=== PATIENT | male | born 1990 | race Caucasian/White ===

== ENCOUNTER 2018-04-28 11:36 | Inpatient (IN) | payer BC, OTHER ==
[2018-04-28] MEDS ORDERED: Sodium Chloride 0.9% 1,000 ML IV ONE (12:09)
[2018-04-28] MEDS ORDERED: Sodium Chloride 0.9% 10 ML Syringe FLUSH PRN (12:10)
[2018-04-28] MEDS ORDERED: Ampicillin/Sulbactam Na 3 GM in Sodium Chloride 0.9% 100 ML IV ONE (12:12)
[2018-04-28] MEDS ORDERED: Iopamidol 612 MG/ML 100 ML Bottle IVPUSH ONE (12:16)
[2018-04-28] MEDS: Sodium Chloride 0.9% 10 ML Syringe FLUSH ONE ×2 (12:22→12:31)
[2018-04-28] MEDS ORDERED: HYDROmorphone 1 MG/ML Syringe IVPUSH ONE ×2 (12:29→14:49)
--- NOTE | 2018-04-28 12:49 | EDM.PDOC ---
ED HPI GENERAL MEDICAL PROBLEM - General Chief Complaint: ENT Problem Stated Complaint: SORE THROAT Time Seen by Provider: 04/28/18 12:49 Source of Information: Reports: Patient History Limitations: Reports: No Limitations - History of Present Illness INITIAL COMMENTS - FREE TEXT/NARRATIVE: 27-year-old male presents for evaluation and treatment of a sore throat. She reports his symptoms started on Wednesday. He was seen at the walk-in clinic on Wednesday. Had a rapid strep test done which was reportedly negative. He is started on a steroid, has had 2 days of this but feels his symptoms are worsening. Patient is currently complaining of a sore throat present at all times and worse with swallowing. He is primarily complaining of pain to the left of his throat and his left neck. He reports associated symptoms of odynophagia. Is appreciated that his voice sounds different. No fevers, nausea or vomiting. Throat Pain Score (Numeric/FACES): 3 - Related Data Allergies Allergy/AdvReac Type Severity Reaction Status Date / Time No Known Allergies Allergy Verified 04/28/18 11:44 Home Meds: Home Meds Diphenhyd/Lidocaine/Nystatin [Magic Mouthwash] 10 ml PO QID PRN 04/28/18 [ History] methylPREDNISolone [Medrol] 4 mg PO ASDIRECTED 04/28/18 [History] Past Medical History - Past Health History Medical/Surgical History: Denies Medical/Surgical History Social & Family History - Family History Family Medical History: Noncontributory - Tobacco Use Smoking Status *Q: Current Every Day Smoker Years of Tobacco use: 5 Packs/Tins Daily: 0.1 - Caffeine Use Caffeine Use: Reports: Coffee - Recreational Drug Use Recreational Drug Use: No ED ROS ENT - Review of Systems Review Of Systems: See Below Constitutional: Reports: Chills, Malaise. Denies: Fever HEENT: Reports: Ear Pain (left), Throat Pain, Other (reports odynophagia) Respiratory: Denies: Cough GI/Abdominal: Denies: Nausea, Vomiting Musculoskeletal: Reports: Neck Pain (left sided ) ED EXAM, ENT - Physical Exam Exam: See Below Exam Limited By: No Limitations General Appearance: Alert, WD/WN, Mild Distress Ears: Normal External Exam, Normal Canal, Hearing Grossly Normal, Normal TMs Nose: Normal Inspection Mouth/Throat: Normal Inspection, Muffled Voice, Peritonsillar Mass (left sided) , Pharyngeal Erythema, Trismus, Uvular Deviation Neck: Normal Inspection, Lymphadenopathy (L) Respiratory/Chest: No Respiratory Distress, Lungs Clear, Normal Breath Sounds Cardiovascular: Normal Peripheral Pulses, Regular Rate, Rhythm, No Murmur Neurological: Alert, Oriented, Normal Cognition Psychiatric: Normal Affect, Normal Mood Skin: Warm, Dry, Normal Color Course - Vital Signs Last Recorded V/S: Last Vital Signs Temp 98.8 F 04/28/18 15:45 Pulse 75 04/28/18 15:45 Resp 16 04/28/18 15:45 BP 138/91 H 04/28/18 15:45 Pulse Ox 98 04/28/18 15:45 - Orders/Labs/Meds Orders: Active Orders 24 hr Category Date Time Status CULTURE BLOOD [] Stat Lab 04/28/18 14:22 Received CULTURE BLOOD [] Stat Lab 04/28/18 14:25 Received CULTURE STREP A CONFIRMATION [] Stat Lab 04/28/18 12:20 Results STREP SCRN A RAPID W CULT CONF [] Stat Lab 04/28/18 12:20 Results Sodium Chloride 0.9% [Normal Saline] 1,000 ml Med 04/28/18 12:09 Active IV ONETIME Sodium Chloride 0.9% [Saline Flush] Med 04/28/18 12:10 Active 10 ml FLUSH ASDIRECTED PRN Blood Culture x2 Reflex Set [OM.PC] Stat Oth 04/28/18 14:03 Ordered Peripheral IV Insertion Adult [OM.PC] Routine Oth 04/28/18 12:09 Ordered Medication Orders Hydromorphone HCl (Dilaudid) 0.5 mg IVPUSH Q2H PRN PRN Reason: Pain (severe 7-10) Sodium Chloride (Normal Saline) 1,000 mls @ 150 mls/hr IV ONETIME ONE Stop: 04/28/18 18:48 Last Admin: 04/28/18 12:22 Dose: 150 mls/hr Ampicillin Sodium/Sulbactam (Sodium 3 gm/ Sodium Chloride) 100 mls @ 200 mls/ hr IV Q6H DONALDO Ibuprofen (Motrin) 400 mg PO Q6H PRN PRN Reason: Pain (mild 1-3) Ketorolac Tromethamine (Toradol) 30 mg IV Q6H PRN PRN Reason: Pain (moderate 4-6) Ondansetron HCl (Zofran Odt) 4 mg PO Q4H PRN PRN Reason: nausea, able to take PO Ondansetron HCl (Zofran) 4 mg IV Q4H PRN PRN Reason: Nausea/Vomiting Saccharomyces Boulardii (Florastor) 250 mg PO BID DONALDO Sodium Chloride (Saline Flush) 10 ml FLUSH ASDIRECTED PRN PRN Reason: Keep Vein Open Last Admin: 04/28/18 12:22 Dose: 10 ml Labs: Laboratory Tests 04/28/18 04/28/18 Range/Units 12:20 12:20 WBC 18.77 H (4.23-9.07) K/mm3 RBC 5.49 (4.63-6.08) M/mm3 Hgb 16.3 (13.7-17.5) gm/L Hct 47.6 (40.1-51.0) % MCV 86.7 (79.0-92.2) fl MCH 29.7 (25.7-32.2) pg MCHC 34.2 (32.2-35.5) g/dl RDW Std Deviation 40.6 (35.1-43.9) fL Plt Count 244 (163-337) K/mm3 MPV 9.9 (9.4-12.3) fl Neutrophils % (Manual) 81 H (40-60) % Band Neutrophils % 2 (0-10) % Lymphocytes % (Manual) 11 L (20-40) % Atypical Lymphs % 0 % Monocytes % (Manual) 5 (2-10) % Eosinophils % (Manual) 0 L (0.8-7.0) % Basophils % (Manual) 1 (0.2-1.2) Platelet Estimate Adequate RBC Morph Comment Normal Sodium 135 L (136-145) mEq/L Potassium 4.2 (3.5-5.1) mEq/L Chloride 100 (98-107) mEq/L Carbon Dioxide 25 (21-32) mEq/L Anion Gap 14.2 (5-15) BUN 17 (7-18) mg/dL Creatinine 1.1 (0.7-1.3) mg/dL Est Cr Clr Drug Dosing 106.14 mL/min Estimated GFR (MDRD) > 60 (>60) mL/min BUN/Creatinine Ratio 15.5 (14-18) Glucose 135 H (74-106) mg/dL Calcium 9.3 (8.5-10.1) mg/dL Total Bilirubin 0.7 (0.2-1.0) mg/dL AST 11 L (15-37) U/L ALT 22 (16-63) U/L Alkaline Phosphatase 52 (46-116) U/L C-Reactive Protein 12.5 H* (<1.0) mg/dL Total Protein 8.6 H (6.4-8.2) g/dl Albumin 3.8 (3.4-5.0) g/dl Globulin 4.8 gm/dL Albumin/Globulin Ratio 0.8 L (1-2) Meds: Medications Generic Name Dose Route Start Last Admin Trade Name Freq PRN Reason Stop Dose Admin Hydromorphone HCl 0.5 mg 04/28/18 16:57 Dilaudid IVPUSH Q2H PRN Pain (severe 7-10) Sodium Chloride 1,000 mls @ 150 mls/hr 04/28/18 12:09 04/28/18 12:22 Normal Saline IV 04/28/18 18:48 150 mls/hr ONETIME ONE Administration Ampicillin Sodium/Sulbactam 100 mls @ 200 mls/hr 04/28/18 17:15 Sodium 3 gm/ Sodium Chloride IV Q6H DONALDO Ibuprofen 400 mg 04/28/18 16:57 Motrin PO Q6H PRN Pain (mild 1-3) Ketorolac Tromethamine 30 mg 04/28/18 16:57 Toradol IV Q6H PRN Pain (moderate 4-6) Ondansetron HCl 4 mg 04/28/18 16:57 Zofran Odt PO Q4H PRN nausea, able to take PO Ondansetron HCl 4 mg 04/28/18 16:57 Zofran IV Q4H PRN Nausea/Vomiting Saccharomyces Boulardii 250 mg 04/28/18 21:00 Florastor PO BID DONALDO Sodium Chloride 10 ml 04/28/18 12:10 04/28/18 12:22 Saline Flush FLUSH 10 ml ASDIRECTED PRN Administration Keep Vein Open Discontinued Medications Generic Name Dose Route Start Last Admin Trade Name Freq PRN Reason Stop Dose Admin Hydromorphone HCl 0.5 mg 04/28/18 12:29 04/28/18 12:45 Dilaudid IVPUSH 04/28/18 12:30 0.5 mg ONETIME ONE Administration Hydromorphone HCl 0.5 mg 04/28/18 14:49 04/28/18 14:56 Dilaudid IVPUSH 04/28/18 14:50 0.5 mg ONETIME ONE Administration Ampicillin Sodium/Sulbactam 100 mls @ 200 mls/hr 04/28/18 12:12 04/28/18 12: 37 Sodium 3 gm/ Sodium Chloride IV 04/28/18 12:41 200 mls/hr ONETIME ONE Administration Iopamidol 80 ml 04/28/18 12:16 04/28/18 12:31 Isovue-300 (61%) IVPUSH 04/28/18 12:17 80 ml ONETIME ONE Administration Sodium Chloride 10 ml 04/28/18 12:16 04/28/18 12:31 Saline Flush FLUSH 04/28/18 12:17 10 ml ONETIME ONE Administration - Radiology Interpretation Free Text/Narrative:: CT neck Technique: Multiple axial sections through the neck were obtained. Reconstructed coronal and sagittal images were reviewed. Intravenous contrast was utilized. Findings: Marked swelling is seen within the region of the left palatine tonsil. Multiple low-density findings are seen within this area of soft tissue swelling. Largest low density finding measures 2.0 cm and other findings measure less than 1 cm. This soft tissue swelling extends inferiorly to the level of the thyroid cartilage. Finding extends superiorly to above the uvula. This abnormality pushes the hypopharynx to the right side by about 1.2 cm. This finding obliterates the left piriform sinus. There is thickening of the uvula. Epiglottis is normal in size. Small portion of the visualized lung apices are clear. Thyroid gland shows a small left-sided low density nodule measuring 6 mm. Slightly prominent left- sided lymph nodes are seen within the neck presumably representing reactive change from the peritonsillar finding. Bone window settings were reviewed which appear within normal limits for the patient's age. Normal enhancing vascular structures are seen. Impression: 1. Marked swelling in the region of the left palatine tonsil with findings continuing superiorly to above the uvula and inferiorly to laryngeal cartilage. This obliterates the left piriform sinus and pushes the hypopharynx to the right by about 1.2 cm. Multiple low-density findings are seen within this area of soft tissue swelling compatible with more focal areas of infection with larger finding measuring 2.0 cm possibly due to early abscess. Hounsfield unit measurements do not appear of fluid to allow for drainage at this time, but puts the patient at risk for future drainable abscess. 2. Multiple slightly enlarged lymph nodes within the left neck which are felt to be reactive from the left peritonsillar finding. 3. Small nodule within the left lobe of the thyroid gland. Thyroid ultrasound recommended to further evaluate. This can be performed non-emergently. - Re-Assessments/Exams Free Text/Narrative Re-Assessment/Exam: 04/28/18 14:[address] Marrero, ENT on-call at [facility] in [place]. He has reviewed [place] images. At this point recommended continuing on the Unasyn. Avoid steroids. At this point there is no intervention ear, Nose and throat needs to do. Recommended admission and monitoring. It if the patient's symptoms worsen may require transfer to [place] but at this time is not necessary. Case discussed Dr. Rosenbaum, hospitalist on-call. She has come to the ER into the patient. Will admit to [facility]. Departure - Departure Time of Disposition: 14:35 Disposition: Admitted As Inpatient 66 Condition: Serious Clinical Impression: Peritonsillar abscess - Discharge Information *PRESCRIPTION DRUG MONITORING PROGRAM REVIEWED*: No *COPY OF PRESCRIPTION DRUG MONITORING REPORT IN PATIENT JOANNA: No - My Orders Last 24 Hours: My Active Orders 04/28/18 12:09 Sodium Chloride 0.9% [Normal Saline] 1,000 ml IV ONETIME Peripheral IV Insertion Adult [OM.PC] Routine 04/28/18 12:10 Sodium Chloride 0.9% [Saline Flush] 10 ml FLUSH ASDIRECTED PRN 04/28/18 12:20 CULTURE STREP A CONFIRMATION [RM] Stat STREP SCRN A RAPID W CULT CONF [RM] Stat 04/28/18 14:03 Blood Culture x2 Reflex Set [OM.PC] Stat 04/28/18 14:22 CULTURE BLOOD [BC] Stat 04/28/18 14:25 CULTURE BLOOD [BC] Stat - Assessment/Plan Last 24 Hours: My Active Orders 04/28/18 12:09 Sodium Chloride 0.9% [Normal Saline] 1,000 ml IV ONETIME Peripheral IV Insertion Adult [OM.PC] Routine 04/28/18 12:10 Sodium Chloride 0.9% [Saline Flush] 10 ml FLUSH ASDIRECTED PRN 04/28/18 12:20 CULTURE STREP A CONFIRMATION [] Stat STREP SCRN A RAPID W CULT CONF [] Stat 04/28/18 14:03 Blood Culture x2 Reflex Set [OM.PC] Stat 04/28/18 14:22 CULTURE BLOOD [BC] Stat 04/28/18 14:25 CULTURE BLOOD [BC] Stat
--- NOTE | 2018-04-28 13:10 | CT ---
CT neck Technique: Multiple axial sections through the neck were obtained. Reconstructed coronal and sagittal images were reviewed. Intravenous contrast was utilized. Findings: Marked swelling is seen within the region of the left palatine tonsil. Multiple low-density findings are seen within this area of soft tissue swelling. Largest low density finding measures 2.0 cm and other findings measure less than 1 cm. This soft tissue swelling extends inferiorly to the level of the thyroid cartilage. Finding extends superiorly to above the uvula. This abnormality pushes the hypopharynx to the right side by about 1.2 cm. This finding obliterates the left piriform sinus. There is thickening of the uvula. Epiglottis is normal in size. Small portion of the visualized lung apices are clear. Thyroid gland shows a small left-sided low density nodule measuring 6 mm. Slightly prominent left-sided lymph nodes are seen within the neck presumably representing reactive change from the peritonsillar finding. Bone window settings were reviewed which appear within normal limits for the patient's age. Normal enhancing vascular structures are seen. Impression: 1. Marked swelling in the region of the left palatine tonsil with findings continuing superiorly to above the uvula and inferiorly to laryngeal cartilage. This obliterates the left piriform sinus and pushes the hypopharynx to the right by about 1.2 cm. Multiple low-density findings are seen within this area of soft tissue swelling compatible with more focal areas of infection with larger finding measuring 2.0 cm possibly due to early abscess. Hounsfield unit measurements do not appear of fluid to allow for drainage at this time, but puts the patient at risk for future drainable abscess. 2. Multiple slightly enlarged lymph nodes within the left neck which are felt to be reactive from the left peritonsillar finding. 3. Small nodule within the left lobe of the thyroid gland. Thyroid ultrasound recommended to further evaluate. This can be performed non-emergently. Diagnostic code #5
--- NOTE | 2018-04-28 15:38 | PCM.HP ---
H&P History of Present Illness - General Date of Service: 04/28/18 Admit Problem/Dx: Admission Diagnosis/Problem Admission Diagnosis/Problem Peritonsillar abscess Source of Information: Patient, Provider History Limitations: Reports: No Limitations - History of Present Illness Initial Comments - Free Text/Narative: This is a 27 yo male with past medical h/o L congenital eye malformation with blindness, partial deafness bilaterally, previously fractured clavicle comes in for peritonsillar abscess. His symptoms started on Wednesday, was seen at the walk- in clinic on Wednesday. Rapid strep test was reportedly negative. He was started on a steroid, after taking for 2 days he feels his symptoms are worsening. Pt c/ o left throat and neck pain, throat pain worse with swallowing, and change in voice. His initial workup in the ED showed a CBC remarkable for WBC 18.77, Neut 81%, Lymph 11%. His chemistry is remarkable for Na 135, Glu 135, AST 11, CRP 12.5, Protein 8.6. Neck CT shows marked swelling in the region of the left palatine tonsil with findings continuing superiorly to above the uvula and inferiorly to laryngeal cartilage. This obliterates the left piriform sinus and pushes the hypopharynx to the right by about 1.2 cm. Multiple low-density findings are seen within this area of soft tissue swelling compatible with more focal areas of infection with larger finding measuring 2.0 cm possibly due to early abscess. Hounsfield unit measurements do not appear of fluid to allow for drainage at this time, but puts the patient at risk for future drainable abscess. He is subsequently admitted to the medical floor. He is a Full Code. He does not have a PCP. Throat Pain Score (Numeric/FACES): 3 - Related Data Allergies/Adverse Reactions: Allergies Allergy/AdvReac Type Severity Reaction Status Date / Time No Known Allergies Allergy Verified 04/28/18 11:44 Home Medications: Home Meds Diphenhyd/Lidocaine/Nystatin [Magic Mouthwash] 10 ml PO QID PRN 04/28/18 [ History] methylPREDNISolone [Medrol] 4 mg PO ASDIRECTED 04/28/18 [History] Past Medical History - Past Health History Medical/Surgical History: Denies Medical/Surgical History Social & Family History - Family History Family Medical History: Noncontributory - Tobacco Use Smoking Status *Q: Current Every Day Smoker Years of Tobacco use: 5 Packs/Tins Daily: 0.1 - Caffeine Use Caffeine Use: Reports: Coffee - Recreational Drug Use Recreational Drug Use: No H&P Review of Systems - Review of Systems: Review Of Systems: See Below General: Reports: Chills, Malaise. Denies: Fever HEENT: Reports: Ear Pain (L sided), Sore Throat (L sided), Other (pain with swallowing) Pulmonary: Reports: No Symptoms. Denies: Shortness of Breath, Cough Cardiovascular: Reports: No Symptoms. Denies: Chest Pain Gastrointestinal: Reports: No Symptoms. Denies: Abdominal Pain, Diarrhea, Nausea, Vomiting Genitourinary: Reports: No Symptoms Musculoskeletal: Reports: Neck Pain (L sided) Skin: Reports: No Symptoms Psychiatric: Reports: No Symptoms Neurological: Reports: No Symptoms Hematologic/Lymphatic: Reports: No Symptoms Immunologic: Reports: No Symptoms Exam - Exam Exam: See Below (L congenital eye malformation with blindness) - Vital Signs Vital Signs: Last Vital Signs Temp 97.8 F 04/28/18 11:44 Pulse 73 04/28/18 11:44 Resp 20 04/28/18 11:44 BP 149/105 H 04/28/18 11:44 Pulse Ox 99 04/28/18 11:44 Weight: 164 lb - Exam Quality Assessment: DVT Prophylaxis General: Alert, Oriented, Cooperative, Mild Distress HEENT: Conjunctiva Clear, EACs Clear, EOMI, Hearing Intact, Mucosa Moist & [place] , Nares Patent, Normal Nasal Septum, Pupils Equal, Pupils Reactive, Other. No: Posterior Pharynx Clear Neck: Supple, Trachea Midline, Lymphadenopathy (L sided) Lungs: Clear to Auscultation, Normal Respiratory Effort Cardiovascular: Regular Rate, Regular Rhythm GI/Abdominal Exam: Normal Bowel Sounds, Soft, Non-Tender, No Organomegaly, No Distention, No Abnormal Bruit, No Mass, Pelvis Stable (Male) Exam: Deferred Rectal (Males) Exam: Deferred Back Exam: Normal Inspection, Full Range of Motion, NT Extremities: Normal Inspection, Normal Range of Motion, Non-Tender, No Pedal Edema, Normal Capillary Refill Peripheral Pulses: 3+: Posterior Tibial (L), Posterior Tibial (R), Dorsalis Pedis (L), Dorsalis Pedis (R) Skin: Warm, Dry, Intact Neurological: Cranial Nerves Intact (grossly) Neuro Extensive - Mental Status: Alert, Oriented x3, Normal Mood/Affect, Normal Cognition, Memory Intact Psychiatric: Alert, Normal Affect, Normal Mood - Patient Data Lab Results Last 24 hrs: Laboratory Results - last 24 hr 04/28/18 04/28/18 Range/Units 12:20 12:20 WBC 18.77 H (4.23-9.07) K/mm3 RBC 5.49 (4.63-6.08) M/mm3 Hgb 16.3 (13.7-17.5) gm/L Hct 47.6 (40.1-51.0) % MCV 86.7 (79.0-92.2) fl MCH 29.7 (25.7-32.2) pg MCHC 34.2 (32.2-35.5) g/dl RDW Std Deviation 40.6 (35.1-43.9) fL Plt Count 244 (163-337) K/mm3 MPV 9.9 (9.4-12.3) fl Neutrophils % (Manual) 81 H (40-60) % Band Neutrophils % 2 (0-10) % Lymphocytes % (Manual) 11 L (20-40) % Atypical Lymphs % 0 % Monocytes % (Manual) 5 (2-10) % Eosinophils % (Manual) 0 L (0.8-7.0) % Basophils % (Manual) 1 (0.2-1.2) Platelet Estimate Adequate RBC Morph Comment Normal Sodium 135 L (136-145) mEq/L Potassium 4.2 (3.5-5.1) mEq/L Chloride 100 (98-107) mEq/L Carbon Dioxide 25 (21-32) mEq/L Anion Gap 14.2 (5-15) BUN 17 (7-18) mg/dL Creatinine 1.1 (0.7-1.3) mg/dL Est Cr Clr Drug Dosing 106.14 mL/min Estimated GFR (MDRD) > 60 (>60) mL/min BUN/Creatinine Ratio 15.5 (14-18) Glucose 135 H (74-106) mg/dL Calcium 9.3 (8.5-10.1) mg/dL Total Bilirubin 0.7 (0.2-1.0) mg/dL AST 11 L (15-37) U/L ALT 22 (16-63) U/L Alkaline Phosphatase 52 (46-116) U/L C-Reactive Protein 12.5 H* (<1.0) mg/dL Total Protein 8.6 H (6.4-8.2) g/dl Albumin 3.8 (3.4-5.0) g/dl Globulin 4.8 gm/dL Albumin/Globulin Ratio 0.8 L (1-2) Result Diagrams: 04/28/18 12:20 04/28/18 12:20 Connor Results Last 24 hrs: Microbiology 04/28/18 12:20 Group A Streptococcus Rapid Screen - Final Throat NEGATIVE STREP A SCREEN - Problem List (1) Peritonsillar abscess SNOMED Code(s): 60444767 ICD Code: J36 - PERITONSILLAR ABSCESS Status: Acute Priority: High Current Visit: Yes Problem List Initiated/Reviewed/Updated: Yes Orders Last 24hrs: Active Orders 24 hr Category Date Time Status Patient Status [ADT] Routine ADT 04/28/18 14:49 Active Peripheral IV Care [RC] . DIRECTED Care 04/28/18 12:10 Active CULTURE BLOOD [] Stat Lab 04/28/18 14:22 Received CULTURE BLOOD [] Stat Lab 04/28/18 14:25 Received CULTURE STREP A CONFIRMATION [] Stat Lab 04/28/18 12:20 Results STREP SCRN A RAPID W CULT CONF [] Stat Lab 04/28/18 12:20 Results Sodium Chloride 0.9% [Normal Saline] 1,000 ml Med 04/28/18 12:09 Active IV ONETIME Sodium Chloride 0.9% [Saline Flush] Med 04/28/18 12:10 Active 10 ml FLUSH ASDIRECTED PRN Blood Culture x2 Reflex Set [OM.PC] Stat Oth 04/28/18 14:03 Ordered Peripheral IV Insertion Adult [OM.PC] Routine Oth 04/28/18 12:09 Ordered Medication Orders Sodium Chloride (Normal Saline) 1,000 mls @ 150 mls/hr IV ONETIME ONE Stop: 04/28/18 18:48 Last Admin: 04/28/18 12:22 Dose: 150 mls/hr Sodium Chloride (Saline Flush) 10 ml FLUSH ASDIRECTED PRN PRN Reason: Keep Vein Open Last Admin: 04/28/18 12:22 Dose: 10 ml Assessment/Plan Comment:: Assessment/Plan: Acute: Peritonsillar Abscess * Started Wednesday, seen at walk-in clinic on Wednesday: * Rapid strep test was reportedly negative--> Strep screen negative here * He was started on a steroid, sx's worsened per pt--> D/C steroid * Pt c/o left throat and neck pain, throat pain worse with swallowing, change in voice * WBC 18.77, CRP 12.5 * Neck CT: * 1. Marked swelling in the region of the left palatine tonsil with findings continuing superiorly to above the uvula and inferiorly to laryngeal cartilage. This obliterates the left piriform sinus and pushes the hypopharynx to the right by about 1.2 cm. Multiple low-density findings are seen within this area of soft tissue swelling compatible with more focal areas of infection with larger finding measuring 2.0 cm possibly due to early abscess. Hounsfield unit measurements do not appear of fluid to allow for drainage at this time, but puts the patient at risk for future drainable abscess. * 2. Multiple slightly enlarged lymph nodes within the left neck which are felt to be reactive from the left peritonsillar finding. * 3. Small nodule within the left lobe of the thyroid gland. Thyroid ultrasound recommended to further evaluate. This can be performed non- emergently. * Case discussed in ED with Dr. Marrero, ENT on-call at [facility] in [place] : * He reviewed imaging, recommended continuing on the Unasyn, avoid steroids * No ENT intervention needed at this time--> Recommended admission and monitoring. * If pt's symptoms worsen may require transfer to [place] but at this time is not necessary * Unasyn started in ED--> continue * Pain management PRN * Blood cultures pending * Consult General Surgeon if unresponsive to Abx * Thyroid U/S recommended to further evaluate small nodule in left lobe of thyroid outpt Nicotine Dependence * 0.1 ppd x 5 years * Smoking cessation counseling given * Nicotine patch Chronic: L congenital eye malformation w/ blindness Partial deafness bilaterally Previously fractured clavicle Plan: Admit to Medical Floor Routine AM Labs Clear liquid diet DVT/GI prophylaxis Code Status: Full; PCP: none
[2018-04-28] MEDS ORDERED: Ondansetron 4 MG Tab.DIS PO PRN (16:57)
[2018-04-28] MEDS ORDERED: Ondansetron 4 MG/2 ML SDV IV PRN (16:57)
[2018-04-28] MEDS ORDERED: HYDROmorphone 1 MG/ML Syringe IVPUSH PRN (16:57)
[2018-04-28] MEDS ORDERED: DIPHENHYD PO PRN (17:11)
[2018-04-28] MEDS ORDERED: LIDOCAINE PO PRN (17:11)
[2018-04-28] MEDS ORDERED: NYSTATIN PO PRN (17:11)
[2018-04-28] MEDS ORDERED: Benzocaine 20% Oral Spray 59.2 ML Canister MUCMEM PRN (17:12)
[2018-04-28] MEDS: Ketorolac 30 MG/ML SDV IV PRN (17:18)
[2018-04-28] MEDS: Ampicillin/Sulbactam Na 3 GM in Sodium Chloride 0.9% 100 ML IV SCH ×2 (17:32→23:41)
[2018-04-28] MEDS: Saccharomyces Boulardii (Probiotic) 250 MG Cap PO SCH (23:41)
[2018-04-29] MEDS: Ketorolac 30 MG/ML SDV IV PRN ×2 (04:08→15:41)
[2018-04-29] MEDS: Ampicillin/Sulbactam Na 3 GM in Sodium Chloride 0.9% 100 ML IV SCH ×3 (06:17→17:12)
[2018-04-29] MEDS: Saccharomyces Boulardii (Probiotic) 250 MG Cap PO SCH ×2 (08:48→20:22)
[2018-04-29] MEDS: Nicotine 7 MG/24 Hr Patch TRDERM SCH (08:48)
[2018-04-29] MEDS: Famotidine 20 MG Tab PO SCH ×2 (08:48→20:22)
--- NOTE | 2018-04-29 16:19 | PCM.PN ---
- General Info Date of Service: 04/29/18 Admission Dx/Problem (Free Text): Admission Diagnosis/Problem Admission Diagnosis/Problem Peritonsillar abscess Subjective Update: In to see Emmanuel. He is sitting up in bed watching TV. He states he is feeling better. No current complaints. No concerns from nursing. Will continue antibiotics to see if continues to improve. Will likely stay the weekend. Functional Status: Reports: Pain Controlled, Tolerating Diet, Ambulating, Urinating - Review of Systems General: Reports: No Symptoms. Denies: Fever, Chills HEENT: Reports: Sore Throat (L sided, improving), Other (pain with swallowing, improving) Pulmonary: Reports: No Symptoms. Denies: Shortness of Breath, Cough Cardiovascular: Reports: No Symptoms. Denies: Chest Pain Gastrointestinal: Reports: No Symptoms. Denies: Abdominal Pain, Diarrhea, Nausea, Vomiting Genitourinary: Reports: No Symptoms Musculoskeletal: Reports: Neck Pain (L sided, improving) Skin: Reports: No Symptoms Neurological: Reports: No Symptoms Psychiatric: Reports: No Symptoms - Patient Data Vitals - Most Recent: Last Vital Signs Temp 98.1 F 04/29/18 15:29 Pulse 69 04/29/18 15:29 Resp 15 04/29/18 15:29 BP 134/82 04/29/18 16:05 Pulse Ox 99 04/29/18 15:29 Weight - Most Recent: 162 lb 14.4 oz I&O - Last 24 Hours: Intake & Output 04/29/18 04/29/18 04/29/18 06:59 14:59 22:59 Intake Total 600 520 900 Output Total 1400 900 Balance -800 520 0 Lab Results Last 24 Hours: Laboratory Results - last 24 hr 04/29/18 04/29/18 04/29/18 Range/Units 04:10 06:35 06:35 WBC 13.92 H (4.23-9.07) K/mm3 RBC 4.71 (4.63-6.08) M/mm3 Hgb 14.2 (13.7-17.5) gm/L Hct 42.0 (40.1-51.0) % MCV 89.2 (79.0-92.2) fl MCH 30.1 (25.7-32.2) pg MCHC 33.8 (32.2-35.5) g/dl RDW Std Deviation 41.6 (35.1-43.9) fL Plt Count 211 (163-337) K/mm3 MPV 10.0 (9.4-12.3) fl Neut % (Auto) 74.8 H (34.0-67.9) % Lymph % (Auto) 14.4 L (21.8-53.1) % [place] % (Auto) 10.1 (5.3-12.2) % Eos % (Auto) 0.3 L (0.8-7.0) Baso % (Auto) 0.3 (0.1-1.2) % Neut # (Auto) 10.40 H (1.78-5.38) K/mm3 Lymph # (Auto) 2.01 (1.32-3.57) K/mm3 [place] # (Auto) 1.41 H (0.30-0.82) K/mm3 Eos # (Auto) 0.04 (0.04-0.54) K/mm3 Baso # (Auto) 0.04 (0.01-0.08) K/mm3 Sodium 137 (136-145) mEq/L Potassium 4.1 (3.5-5.1) mEq/L Chloride 102 (98-107) mEq/L Carbon Dioxide 26 (21-32) mEq/L Anion Gap 13.1 (5-15) BUN 16 (7-18) mg/dL Creatinine 1.1 (0.7-1.3) mg/dL Est Cr Clr Drug Dosing 106.14 mL/min Estimated GFR (MDRD) > 60 (>60) mL/min BUN/Creatinine Ratio 14.5 (14-18) Glucose 95 (74-106) mg/dL Calcium 8.7 (8.5-10.1) mg/dL Magnesium 2.2 (1.8-2.4) mg/dl Total Bilirubin 0.7 (0.2-1.0) mg/dL AST 10 L (15-37) U/L ALT 18 (16-63) U/L Alkaline Phosphatase 44 L (46-116) U/L C-Reactive Protein 12.0 H* (<1.0) mg/dL Total Protein 7.0 (6.4-8.2) g/dl Albumin 3.0 L (3.4-5.0) g/dl Globulin 4.0 gm/dL Albumin/Globulin Ratio 0.8 L (1-2) Urine Opiates Screen Negative (WYGMPY=853) Ur Buprenorphine Scrn Negative (CUTOFF=10) Ur Oxycodone Screen Negative (ZJS2JO=939) Urine Methadone Screen Negative (VHZ8OW=764) Ur Propoxyphene Screen Negative (XAQXDW=979) Ur Barbiturates Screen Negative (NXIEHB=245) Ur Tricyclics Screen Negative (ZZDTMI=598) Ur Phencyclidine Scrn Negative (CUTOFF=25) Ur Amphetamine Screen Negative (GGDEJG=694) U Methamphetamines Scrn Negative (XYPLHT=406) U Benzodiazepines Scrn Negative (MAGFGJ=135) U Cocaine Metab Screen Negative (YCHPIL=835) U Marijuana (THC) Screen Negative (CUTOFF=50) Connor Results Last 24 Hours: Microbiology 04/28/18 14:22 Aerobic Blood Culture - Preliminary Blood - Venous NO GROWTH AFTER 1 DAY Anaerobic Blood Culture - Preliminary NO GROWTH AFTER 1 DAY 04/28/18 14:25 Aerobic Blood Culture - Preliminary Blood - Venous - Lab Draw NO GROWTH AFTER 1 DAY Anaerobic Blood Culture - Preliminary NO GROWTH AFTER 1 DAY 04/28/18 12:20 Quick Strep Confirmation Culture - Preliminary Throat Group A Streptococcus Rapid Screen - Final NEGATIVE STREP A SCREEN Med Orders - Current: Current Medications Benzocaine (Hurricaine 20% [place]) 0 ml MUCMEM Q4HR PRN PRN Reason: Pain Famotidine (Pepcid) 20 mg PO BID [facility] Last Admin: 04/29/18 08:48 Dose: 20 mg Hydromorphone HCl (Dilaudid) 0.5 mg IVPUSH Q2H PRN PRN Reason: Pain (severe 7-10) Ampicillin Sodium/Sulbactam (Sodium 3 gm/ Sodium Chloride) 100 mls @ 200 mls/ hr IV Q6H [facility] Last Admin: 04/29/18 12:18 Dose: 200 mls/hr Ibuprofen (Motrin) 400 mg PO Q6H PRN PRN Reason: Pain (mild 1-3) Ketorolac Tromethamine (Toradol) 30 mg IV Q6H PRN PRN Reason: Pain (moderate 4-6) Stop: 05/03/18 16:58 Last Admin: 04/29/18 15:41 Dose: 30 mg Miscellaneous Information (Remove Patch) 1 ea TRDERM DAILY [facility] Last Admin: 04/29/18 08:48 Dose: Not Given Nicotine (Habitrol) 7 mg TRDERM DAILY [facility] Last Admin: 04/29/18 08:48 Dose: Not Given Ondansetron HCl (Zofran Odt) 4 mg PO Q4H PRN PRN Reason: nausea, able to take PO Ondansetron HCl (Zofran) 4 mg IV Q4H PRN PRN Reason: Nausea/Vomiting Diphenhyd/Lidocaine/ (Nystatin Suspension) 0 each PO QID PRN PRN Reason: Pain Saccharomyces Boulardii (Florastor) 250 mg PO BID [facility] Last Admin: 04/29/18 08:48 Dose: 250 mg Sodium Chloride (Saline Flush) 10 ml FLUSH ASDIRECTED PRN PRN Reason: Keep Vein Open Last Admin: 04/28/18 12:22 Dose: 10 ml Discontinued Medications Hydromorphone HCl (Dilaudid) 0.5 mg IVPUSH ONETIME ONE Stop: 04/28/18 12:30 Last Admin: 04/28/18 12:45 Dose: 0.5 mg Hydromorphone HCl (Dilaudid) 0.5 mg IVPUSH ONETIME ONE Stop: 04/28/18 14:50 Last Admin: 04/28/18 14:56 Dose: 0.5 mg Sodium Chloride (Normal Saline) 1,000 mls @ 150 mls/hr IV ONETIME ONE Stop: 04/28/18 18:48 Last Admin: 04/28/18 12:22 Dose: 150 mls/hr Ampicillin Sodium/Sulbactam (Sodium 3 gm/ Sodium Chloride) 100 mls @ 200 mls/ hr IV ONETIME ONE Stop: 04/28/18 12:41 Last Admin: 04/28/18 12:37 Dose: 200 mls/hr Iopamidol (Isovue-300 (61%)) 80 ml IVPUSH ONETIME ONE Stop: 04/28/18 12:17 Last Admin: 04/28/18 12:31 Dose: 80 ml Sodium Chloride (Saline Flush) 10 ml FLUSH ONETIME ONE Stop: 04/28/18 12:17 Last Admin: 04/28/18 12:31 Dose: 10 ml - Exam Quality Assessment: DVT Prophylaxis General: Alert, Oriented, Cooperative, No Acute Distress HEENT: Pupils Equal, Pupils Reactive, EOMI, Mucous Membr. 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) Neck: Supple Lungs: Clear to Auscultation, Normal Respiratory Effort Cardiovascular: Regular Rate, Regular Rhythm GI/Abdominal Exam: Normal Bowel Sounds, Soft, Non-Tender, No Organomegaly, No Distention, No Abnormal Bruit, No Mass, Pelvis Stable (Male) Exam: Deferred Back Exam: Normal Inspection, Full Range of Motion Extremities: Normal Inspection, Normal Range of Motion, Non-Tender, No Pedal Edema, Normal Capillary Refill Peripheral Pulses: 3+: Posterior Tibial (L), Posterior Tibial (R), Dorsalis Pedis (L), Dorsalis Pedis (R) Skin: Warm, Dry, Intact Neurological: No New Focal Deficit Psy/Mental Status: Alert, Normal Affect, Normal Mood - Problem List & Annotations (1) Peritonsillar abscess SNOMED Code(s): 78045216 Code(s): J36 - PERITONSILLAR ABSCESS Status: Acute Priority: High Current Visit: Yes - Problem List Review Problem List Initiated/Reviewed/Updated: Yes - My Orders Last 24 Hours: My Active Orders 04/28/18 16:57 Height and Weight [RC] 04 Intake and Output [RC] 04,16 August Shower [RC] ASDIRECTED Oxygen Therapy [RC] PRN Up ad Stephanie [RC] ASDIRECTED VTE/DVT Education [RC] PER UNIT ROUTINE Vital Signs [RC] 03,09,15,21 HYDROmorphone [Dilaudid] 0.5 mg IVPUSH Q2H PRN Ketorolac [Toradol] 30 mg IV Q6H PRN Ondansetron [Zofran ODT] 4 mg PO Q4H PRN Ondansetron [Zofran] 4 mg IV Q4H PRN 04/28/18 16:58 Ambulate [RC] PER UNIT ROUTINE 04/28/18 17:11 Patient's Own Medication [Ptom] 0 each PO QID PRN 04/28/18 17:12 Benzocaine [Hurricaine 20% [place]] 0 ml MUCMEM Q4HR PRN 04/28/18 18:00 Ampicillin/Sulbactam Na [Unasyn] 3 gm Sodium Chloride 0.9% [Normal Saline] 100 ml IV Q6H 04/28/18 21:00 Saccharomyces Boulardii [Florastor] 250 mg PO BID 04/28/18 Dinner Clear Liquid Diet [DIET] 04/29/18 09:00 Famotidine [Pepcid] 20 mg PO BID Nicotine [Habitrol] 7 mg TRDERM DAILY 04/30/18 05:11 C-REACTIVE PROTEIN [CHEM] AM CBC WITH AUTO DIFF [HEME] AM COMPREHENSIVE METABOLIC PN,CMP [CHEM] AM MAGNESIUM [CHEM] AM 05/01/18 05:11 C-REACTIVE PROTEIN [CHEM] AM CBC WITH AUTO DIFF [HEME] AM COMPREHENSIVE METABOLIC PN,CMP [CHEM] AM MAGNESIUM [CHEM] AM 05/02/18 05:11 C-REACTIVE PROTEIN [CHEM] AM CBC WITH AUTO DIFF [HEME] AM COMPREHENSIVE METABOLIC PN,CMP [CHEM] AM MAGNESIUM [CHEM] AM 05/03/18 05:11 C-REACTIVE PROTEIN [CHEM] AM CBC WITH AUTO DIFF [HEME] AM COMPREHENSIVE METABOLIC PN,CMP [CHEM] AM MAGNESIUM [CHEM] AM 05/03/18 23:00 Ibuprofen [Motrin] 400 mg PO Q6H PRN - Plan Plan:: Assessment/Plan: Acute: Peritonsillar Abscess, Improving * Started Wednesday, seen at walk-in clinic on Wednesday: * Rapid strep test was reportedly negative--> Strep screen negative here * He was started on a steroid, sx's worsened per pt--> D/C steroid * Pt c/o left throat and neck pain, throat pain worse with swallowing, change in voice * WBC 18.77--> 13.92, CRP 12.5-->12 * Neck CT: * 1. Marked swelling in the region of the left palatine tonsil with findings continuing superiorly to above the uvula and inferiorly to laryngeal cartilage. This obliterates the left piriform sinus and pushes the hypopharynx to the right by about 1.2 cm. Multiple low-density findings are seen within this area of soft tissue swelling compatible with more focal areas of infection with larger finding measuring 2.0 cm possibly due to early abscess. Hounsfield unit measurements do not appear of fluid to allow for drainage at this time, but puts the patient at risk for future drainable abscess. * 2. Multiple slightly enlarged lymph nodes within the left neck which are felt to be reactive from the left peritonsillar finding. * 3. Small nodule within the left lobe of the thyroid gland. Thyroid ultrasound recommended to further evaluate. This can be performed non- emergently. * Case discussed in ED with Dr. Marrero, ENT on-call at [facility] in [place] : * He reviewed imaging, recommended continuing on the Unasyn, avoid steroids * No ENT intervention needed at this time--> Recommended admission and monitoring. 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
[2018-04-30] MEDS: Ampicillin/Sulbactam Na 3 GM in Sodium Chloride 0.9% 100 ML IV SCH ×5 (00:12→23:46)
[2018-04-30] MEDS: Ketorolac 30 MG/ML SDV IV PRN ×2 (00:12→08:21)
[2018-04-30] MEDS: Nicotine 7 MG/24 Hr Patch TRDERM SCH (08:05)
[2018-04-30] MEDS: Saccharomyces Boulardii (Probiotic) 250 MG Cap PO SCH ×2 (08:20→20:10)
[2018-04-30] MEDS: Famotidine 20 MG Tab PO SCH ×2 (08:20→20:10)
--- NOTE | 2018-04-30 12:22 | PCM.PN ---
- General Info Date of Service: 04/30/18 Functional Status: Reports: Pain Controlled, Tolerating Diet, Ambulating, Urinating - Review of Systems General: Reports: No Symptoms HEENT: Reports: No Symptoms Pulmonary: Reports: No Symptoms Cardiovascular: Reports: No Symptoms Gastrointestinal: Reports: No Symptoms Genitourinary: Reports: No Symptoms Musculoskeletal: Reports: No Symptoms Skin: Reports: No Symptoms Neurological: Reports: No Symptoms Psychiatric: Reports: No Symptoms - Patient Data Vitals - Most Recent: Last Vital Signs Temp 36.8 C 04/30/18 08:19 Pulse 63 04/30/18 08:19 Resp 16 04/30/18 08:19 BP 126/77 04/30/18 08:19 Pulse Ox 99 04/30/18 08:19 Weight - Most Recent: 74.208 kg I&O - Last 24 Hours: Intake & Output 04/29/18 04/30/18 04/30/18 22:59 06:59 14:59 Intake Total 1400 900 800 Output Total 900 2200 Balance 500 -1300 800 Lab Results Last 24 Hours: Laboratory Results - last 24 hr 04/30/18 04/30/18 Range/Units 05:25 05:25 WBC 10.29 H (4.23-9.07) K/mm3 RBC 4.75 (4.63-6.08) M/mm3 Hgb 14.2 (13.7-17.5) gm/L Hct 42.6 (40.1-51.0) % MCV 89.7 (79.0-92.2) fl MCH 29.9 (25.7-32.2) pg MCHC 33.3 (32.2-35.5) g/dl RDW Std Deviation 40.9 (35.1-43.9) fL Plt Count 215 (163-337) K/mm3 MPV 9.7 (9.4-12.3) fl Neut % (Auto) 66.2 (34.0-67.9) % Lymph % (Auto) 20.2 L (21.8-53.1) % [place] % (Auto) 11.3 (5.3-12.2) % Eos % (Auto) 1.6 (0.8-7.0) Baso % (Auto) 0.5 (0.1-1.2) % Neut # (Auto) 6.82 H (1.78-5.38) K/mm3 Lymph # (Auto) 2.08 (1.32-3.57) K/mm3 [place] # (Auto) 1.16 H (0.30-0.82) K/mm3 Eos # (Auto) 0.16 (0.04-0.54) K/mm3 Baso # (Auto) 0.05 (0.01-0.08) K/mm3 Sodium 140 (136-145) mEq/L Potassium 4.4 (3.5-5.1) mEq/L Chloride 103 (98-107) mEq/L Carbon Dioxide 30 (21-32) mEq/L Anion Gap 11.4 (5-15) BUN 15 (7-18) mg/dL Creatinine 1.1 (0.7-1.3) mg/dL Est Cr Clr Drug Dosing 105.88 mL/min Estimated GFR (MDRD) > 60 (>60) mL/min BUN/Creatinine Ratio 13.6 L (14-18) Glucose 89 (74-106) mg/dL Calcium 8.8 (8.5-10.1) mg/dL Magnesium 2.3 (1.8-2.4) mg/dl Total Bilirubin 0.6 (0.2-1.0) mg/dL AST 12 L (15-37) U/L ALT 18 (16-63) U/L Alkaline Phosphatase 46 (46-116) U/L C-Reactive Protein 11.0 H* (<1.0) mg/dL Total Protein 7.1 (6.4-8.2) g/dl Albumin 2.9 L (3.4-5.0) g/dl Globulin 4.2 gm/dL Albumin/Globulin Ratio 0.7 L (1-2) Connor Results Last 24 Hours: Microbiology 04/28/18 12:20 Group A Streptococcus Rapid Screen - Final Throat NEGATIVE STREP A SCREEN 04/28/18 14:22 Aerobic Blood Culture - Preliminary Blood - Venous NO GROWTH AFTER 1 DAY Anaerobic Blood Culture - Preliminary NO GROWTH AFTER 1 DAY 04/28/18 14:25 Aerobic Blood Culture - Preliminary Blood - Venous - Lab Draw NO GROWTH AFTER 1 DAY Anaerobic Blood Culture - Preliminary NO GROWTH AFTER 1 DAY Med Orders - Current: Current Medications Benzocaine (Hurricaine 20% [place]) 0 ml MUCMEM Q4HR PRN PRN Reason: Pain Famotidine (Pepcid) 20 mg PO BID [facility] Last Admin: 04/30/18 08:20 Dose: 20 mg Ampicillin Sodium/Sulbactam (Sodium 3 gm/ Sodium Chloride) 100 mls @ 200 mls/ hr IV Q6H [facility] Last Admin: 04/30/18 11:16 Dose: 200 mls/hr Ibuprofen (Motrin) 400 mg PO Q6H PRN PRN Reason: Pain (mild 1-3) Ketorolac Tromethamine (Toradol) 30 mg IV Q6H PRN PRN Reason: Pain (moderate 4-6) Stop: 05/03/18 16:58 Last Admin: 04/30/18 08:21 Dose: 30 mg Miscellaneous Information (Remove Patch) 1 ea TRDERM DAILY [facility] Last Admin: 04/30/18 08:05 Dose: Not Given Nicotine (Habitrol) 7 mg TRDERM DAILY [facility] Last Admin: 04/30/18 08:05 Dose: Not Given Ondansetron HCl (Zofran Odt) 4 mg PO Q4H PRN PRN Reason: nausea, able to take PO Diphenhyd/Lidocaine/ (Nystatin Suspension) 0 each PO QID PRN PRN Reason: Pain Saccharomyces Boulardii (Florastor) 250 mg PO BID [facility] Last Admin: 04/30/18 08:20 Dose: 250 mg Sodium Chloride (Saline Flush) 10 ml FLUSH ASDIRECTED PRN PRN Reason: Keep Vein Open Last Admin: 04/28/18 12:22 Dose: 10 ml Discontinued Medications Hydromorphone HCl (Dilaudid) 0.5 mg IVPUSH ONETIME ONE Stop: 04/28/18 12:30 Last Admin: 04/28/18 12:45 Dose: 0.5 mg Hydromorphone HCl (Dilaudid) 0.5 mg IVPUSH ONETIME ONE Stop: 04/28/18 14:50 Last Admin: 04/28/18 14:56 Dose: 0.5 mg Hydromorphone HCl (Dilaudid) 0.5 mg IVPUSH Q2H PRN PRN Reason: Pain (severe 7-10) Sodium Chloride (Normal Saline) 1,000 mls @ 150 mls/hr IV ONETIME ONE Stop: 04/28/18 18:48 Last Admin: 04/28/18 12:22 Dose: 150 mls/hr Ampicillin Sodium/Sulbactam (Sodium 3 gm/ Sodium Chloride) 100 mls @ 200 mls/ hr IV ONETIME ONE Stop: 04/28/18 12:41 Last Admin: 04/28/18 12:37 Dose: 200 mls/hr Iopamidol (Isovue-300 (61%)) 80 ml IVPUSH ONETIME ONE Stop: 04/28/18 12:17 Last Admin: 04/28/18 12:31 Dose: 80 ml Ondansetron HCl (Zofran) 4 mg IV Q4H PRN PRN Reason: Nausea/Vomiting Sodium Chloride (Saline Flush) 10 ml FLUSH ONETIME ONE Stop: 04/28/18 12:17 Last Admin: 04/28/18 12:31 Dose: 10 ml - Exam Quality Assessment: DVT Prophylaxis General: Alert, Oriented, Cooperative, No Acute Distress HEENT: Pupils Equal, Pupils Reactive, EOMI Neck: Trachea Midline, No JVD Lungs: Normal Respiratory Effort Cardiovascular: Regular Rate, Regular Rhythm GI/Abdominal Exam: Normal Bowel Sounds, Soft, Non-Tender, No Organomegaly, No Distention (Male) Exam: Deferred Back Exam: Normal Inspection Extremities: Normal Inspection, Non-Tender, Normal Capillary Refill Skin: Warm Neurological: No New Focal Deficit, Normal Gait, Normal Speech Psy/Mental Status: Alert, Normal Affect, Normal Mood - Problem List Review Problem List Initiated/Reviewed/Updated: Yes - My Orders Last 24 Hours: My Active Orders 04/30/18 10:00 Communication Order [RC] Q12HR 04/30/18 Dinner Regular Diet [DIET] - Plan Plan:: Assessment/Plan: Acute: Peritonsillar Abscess, Improving * Started Wednesday, seen at walk-in clinic on Wednesday: * Rapid strep test was reportedly negative--> Strep screen negative here * He was started on a steroid, sx's worsened per pt--> D/C steroid * Pt c/o left throat and neck pain, throat pain worse with swallowing, change in voice * WBC 18.77--> 13.92-->>~10, CRP 12.5-->12 * Neck CT: * 1. Marked swelling in the region of the left palatine tonsil with findings continuing superiorly to above the uvula and inferiorly to laryngeal cartilage. This obliterates the left piriform sinus and pushes the hypopharynx to the right by about 1.2 cm. Multiple low-density findings are seen within this area of soft tissue swelling compatible with more focal areas of infection with larger finding measuring 2.0 cm possibly due to early abscess. Hounsfield unit measurements do not appear of fluid to allow for drainage at this time, but puts the patient at risk for future drainable abscess. * 2. Multiple slightly enlarged lymph nodes within the left neck which are felt to be reactive from the left peritonsillar finding. * 3. Small nodule within the left lobe of the thyroid gland. Thyroid ultrasound recommended to further evaluate. This can be performed non- emergently. * Case discussed in ED with Dr. Marrero, ENT on-call at [facility] in [place] : * He reviewed imaging, recommended continuing on the Unasyn, avoid steroids * No ENT intervention needed at this time--> Recommended admission and monitoring. * If pt's symptoms worsen may require transfer to [place] but at this time is not necessary * Unasyn started in ED--> continue until [place]05/01. 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
[2018-05-01] MEDS: Ampicillin/Sulbactam Na 3 GM in Sodium Chloride 0.9% 100 ML IV SCH (05:06)
[2018-05-01] MEDS: Saccharomyces Boulardii (Probiotic) 250 MG Cap PO SCH (09:01)
[2018-05-01] MEDS: Nicotine 7 MG/24 Hr Patch TRDERM SCH (09:01)
[2018-05-01] MEDS: Famotidine 20 MG Tab PO SCH (09:01)
[2018-05-01] MEDS ORDERED: Ibuprofen 600 MG Tab PO PRN (09:54)
--- NOTE | 2018-05-01 09:54 | PCM.DCSUM1 ---
Discharge Summary - Hospital Course Free Text/Narrative:: 27 year old with failed outpatient therapy for peritonsillar abscess. He received over 48 hours of IV ATB, required minimal pain meds. He was instructed on daily brushing and flossing his teeth twice daily. A dental appointment is highly recommend. He has a discharge follow up appt before the end of April 2018. A prescription for Augmentin 875 mg BID was given as well as Florstor 250 mg BID. Counselled on tobacco cessation during hospitalization. Primary Dx Peritonsillar abscess Dehydration Tobacco dependence Meds Augmentin Florstor Motrin Appts PCP Dentist/Hygenist Work Excuse provided, return without restriction on 05/03/18 HPI Initial Comments: This is a 27 yo male with past medical h/o L congenital eye malformation with blindness, partial deafness bilaterally, previously fractured clavicle comes in for peritonsillar abscess. His symptoms started on Wednesday, was seen at the walk- in clinic on Wednesday. Rapid strep test was reportedly negative. He was started on a steroid, after taking for 2 days he feels his symptoms are worsening. Pt c/ o left throat and neck pain, throat pain worse with swallowing, and change in voice. His initial workup in the ED showed a CBC remarkable for WBC 18.77, Neut 81%, Lymph 11%. His chemistry is remarkable for Na 135, Glu 135, AST 11, CRP 12.5, Protein 8.6. Neck CT shows marked swelling in the region of the left palatine tonsil with findings continuing superiorly to above the uvula and inferiorly to laryngeal cartilage. This obliterates the left piriform sinus and pushes the hypopharynx to the right by about 1.2 cm. Multiple low-density findings are seen within this area of soft tissue swelling compatible with more focal areas of infection with larger finding measuring 2.0 cm possibly due to early abscess. Hounsfield unit measurements do not appear of fluid to allow for drainage at this time, but puts the patient at risk for future drainable abscess. He is subsequently admitted to the medical floor. He is a Full Code. He does not have a PCP. Diagnosis: Stroke: No - Discharge Data Discharge Date: 05/01/18 Discharge Disposition: Home, Self-Care 01 Condition: Good - Patient Instructions Diet: Regular Diet as Tolerated Activity: As Tolerated Driving: May Drive Today Showering/Bathing: August Shower Notify Provider of: Fever, Increased Pain, Nausea and/or Vomiting - Discharge Plan *PRESCRIPTION DRUG MONITORING PROGRAM REVIEWED*: No *COPY OF PRESCRIPTION DRUG MONITORING REPORT IN PATIENT JOANNA: No Prescriptions/Med Rec: Amoxicillin/Clavulanate K [Augmentin 875-125 MG] 1 tab PO Q12HR #20 tablet Ibuprofen [Motrin] 600 mg PO Q8H PRN #15 tablet PRN Reason: Pain (Moderate 4-6) Saccharomyces Boulardii [Florastor] 250 mg PO BID #20 cap Home Medications: Home Meds Diphenhyd/Lidocaine/Nystatin [Magic Mouthwash] 10 ml PO QID PRN 04/28/18 [ History] Amoxicillin/Clavulanate K [Augmentin 875-125 MG] 1 tab PO Q12HR #20 tablet 05/01 [Rx] Ibuprofen [Motrin] 600 mg PO Q8H PRN #15 tablet 05/01/18 [Rx] Saccharomyces Boulardii [Florastor] 250 mg PO BID #20 cap 05/01/18 [Rx] Oxygen Therapy Mode: Room Air Patient Handouts: Peritonsillar Abscess, [id number], Steps to Quit Smoking Referrals: Castillo Cormier PA-C [Physician Needlemaker] - 05/12/18 11:30 am - Discharge Summary/Plan Comment DC Time >30 min.: No Discharge Summary/Plan Comment: Acute: Peritonsillar Abscess, Improving * Started Wednesday, seen at walk-in clinic on Wednesday: * Rapid strep test was reportedly negative--> Strep screen negative here * He was started on a steroid, sx's worsened per pt--> D/C steroid * Pt c/o left throat and neck pain, throat pain worse with swallowing, change in voice * WBC 18.77--> 13.92-->>~10, CRP 12.5-->12 * Neck CT: * 1. Marked swelling in the region of the left palatine tonsil with findings continuing superiorly to above the uvula and inferiorly to laryngeal cartilage. This obliterates the left piriform sinus and pushes the hypopharynx to the right by about 1.2 cm. Multiple low-density findings are seen within this area of soft tissue swelling compatible with more focal areas of infection with larger finding measuring 2.0 cm possibly due to early abscess. Hounsfield unit measurements do not appear of fluid to allow for drainage at this time, but puts the patient at risk for future drainable abscess. * 2. Multiple slightly enlarged lymph nodes within the left neck which are felt to be reactive from the left peritonsillar finding. * 3. Small nodule within the left lobe of the thyroid gland. Thyroid ultrasound recommended to further evaluate. This can be performed non- emergently. * Case discussed in ED with Dr. Marrero, ENT on-call at [facility] in [place] : * He reviewed imaging, recommended continuing on the Unasyn, avoid steroids * No ENT intervention needed at this time--> Recommended admission and monitoring. * If pt's symptoms worsen may require transfer to [place] but at this time is not necessary * Unasyn started in ED--> continue until 05/01. * Pain management PRN * Blood cultures show no growth * Consult General Surgeon if unresponsive to Abx * Thyroid U/S recommended to further evaluate small nodule in left lobe of thyroid outpt Nicotine Dependence * 0.1 ppd x 5 years * Smoking cessation counseling given * Nicotine patch Chronic: L congenital eye malformation w/ blindness Partial deafness bilaterally Previously fractured clavicle Plan: Admit to Medical Floor Routine AM Labs Clear liquid diet DVT/GI prophylaxis Code Status: Full; PCP: none DEWEY Cadet, 05/01 on Augmentin 875 mg BID Follow up: PCP DDS - General Info Date of Service: 04/28/18 Functional Status: Reports: Pain Controlled, Tolerating Diet, Ambulating, Urinating - Review of Systems General: Reports: No Symptoms HEENT: Reports: No Symptoms Pulmonary: Reports: No Symptoms Cardiovascular: Reports: No Symptoms Gastrointestinal: Reports: No Symptoms Genitourinary: Reports: No Symptoms Musculoskeletal: Reports: No Symptoms Skin: Reports: No Symptoms Neurological: Reports: No Symptoms Psychiatric: Reports: No Symptoms - Patient Data Vitals - Most Recent: Last Vital Signs Temp 36.6 C 05/01/18 09:36 Pulse 50 L 05/01/18 09:36 Resp 16 05/01/18 09:36 BP 138/75 05/01/18 09:36 Pulse Ox 97 05/01/18 09:36 Weight - Most Recent: 75.16 kg I&O - Last 24 hours: Intake & Output 04/30/18 05/01/18 05/01/18 22:59 06:59 14:59 Intake Total 240 1300 Output Total 1300 Balance 240 0 Lab Results - Last 24 hrs: Laboratory Results - last 24 hr 05/01/18 05/01/18 Range/Units 06:10 06:10 WBC 6.47 (4.23-9.07) K/mm3 RBC 4.54 L (4.63-6.08) M/mm3 Hgb 13.7 (13.7-17.5) gm/L Hct 40.3 (40.1-51.0) % MCV 88.8 (79.0-92.2) fl MCH 30.2 (25.7-32.2) pg MCHC 34.0 (32.2-35.5) g/dl RDW Std Deviation 39.8 (35.1-43.9) fL Plt Count 207 (163-337) K/mm3 MPV 9.8 (9.4-12.3) fl Neut % (Auto) 57.2 (34.0-67.9) % Lymph % (Auto) 28.4 (21.8-53.1) % [place] % (Auto) 9.9 (5.3-12.2) % Eos % (Auto) 3.7 (0.8-7.0) Baso % (Auto) 0.6 (0.1-1.2) % Neut # (Auto) 3.70 (1.78-5.38) K/mm3 Lymph # (Auto) 1.84 (1.32-3.57) K/mm3 [place] # (Auto) 0.64 (0.30-0.82) K/mm3 Eos # (Auto) 0.24 (0.04-0.54) K/mm3 Baso # (Auto) 0.04 (0.01-0.08) K/mm3 Manual Slide Review Abnormal smear Sodium 143 (136-145) mEq/L Potassium 4.2 (3.5-5.1) mEq/L Chloride 107 (98-107) mEq/L Carbon Dioxide 26 (21-32) mEq/L Anion Gap 14.2 (5-15) BUN 19 H (7-18) mg/dL Creatinine 1.0 (0.7-1.3) mg/dL Est Cr Clr Drug Dosing 117.96 mL/min Estimated GFR (MDRD) > 60 (>60) mL/min BUN/Creatinine Ratio 19.0 H (14-18) Glucose 92 (74-106) mg/dL Calcium 8.7 (8.5-10.1) mg/dL Magnesium 2.2 (1.8-2.4) mg/dl Total Bilirubin 0.2 (0.2-1.0) mg/dL AST 7 L (15-37) U/L ALT 19 (16-63) U/L Alkaline Phosphatase 40 L (46-116) U/L C-Reactive Protein 8.1 H* (<1.0) mg/dL Total Protein 6.8 (6.4-8.2) g/dl Albumin 2.6 L (3.4-5.0) g/dl Globulin 4.2 gm/dL Albumin/Globulin Ratio 0.6 L (1-2) ALEJANDRA Results - Last 24 hrs: Microbiology 04/28/18 14:22 Aerobic Blood Culture - Preliminary Blood - Venous NO GROWTH AFTER 2 DAYS Anaerobic Blood Culture - Preliminary NO GROWTH AFTER 2 DAYS 04/28/18 14:25 Aerobic Blood Culture - Preliminary Blood - Venous - Lab Draw NO GROWTH AFTER 2 DAYS Anaerobic Blood Culture - Preliminary NO GROWTH AFTER 2 DAYS 04/28/18 12:20 Quick Strep Confirmation Culture - Final Throat Beta Streptococcus Group C Group A Streptococcus Rapid Screen - Final NEGATIVE STREP A SCREEN Med Orders - Current: Current Medications Benzocaine (Hurricaine 20% [place]) 0 ml MUCMEM Q4HR PRN PRN Reason: Pain Famotidine (Pepcid) 20 mg PO BID [facility] Last Admin: 05/01/18 09:01 Dose: 20 mg Ampicillin Sodium/Sulbactam (Sodium 3 gm/ Sodium Chloride) 100 mls @ 200 mls/ hr IV Q6H [facility] Last Admin: 05/01/18 05:06 Dose: 200 mls/hr Ibuprofen (Motrin) 400 mg PO Q6H PRN PRN Reason: Pain (mild 1-3) Ketorolac Tromethamine (Toradol) 30 mg IV Q6H PRN PRN Reason: Pain (moderate 4-6) Stop: 05/03/18 16:58 Last Admin: 04/30/18 08:21 Dose: 30 mg Miscellaneous Information (Remove Patch) 1 ea TRDERM DAILY [facility] Last Admin: 04/30/18 08:05 Dose: Not Given Nicotine (Habitrol) 7 mg TRDERM DAILY [facility] Last Admin: 05/01/18 09:01 Dose: Not Given Ondansetron HCl (Zofran Odt) 4 mg PO Q4H PRN PRN Reason: nausea, able to take PO Diphenhyd/Lidocaine/ (Nystatin Suspension) 0 each PO QID PRN PRN Reason: Pain Saccharomyces Boulardii (Florastor) 250 mg PO BID [facility] Last Admin: 05/01/18 09:01 Dose: 250 mg Sodium Chloride (Saline Flush) 10 ml FLUSH ASDIRECTED PRN PRN Reason: Keep Vein Open Last Admin: 04/28/18 12:22 Dose: 10 ml Discontinued Medications Hydromorphone HCl (Dilaudid) 0.5 mg IVPUSH ONETIME ONE Stop: 04/28/18 12:30 Last Admin: 04/28/18 12:45 Dose: 0.5 mg Hydromorphone HCl (Dilaudid) 0.5 mg IVPUSH ONETIME ONE Stop: 04/28/18 14:50 Last Admin: 04/28/18 14:56 Dose: 0.5 mg Hydromorphone HCl (Dilaudid) 0.5 mg IVPUSH Q2H PRN PRN Reason: Pain (severe 7-10) Sodium Chloride (Normal Saline) 1,000 mls @ 150 mls/hr IV ONETIME ONE Stop: 04/28/18 18:48 Last Admin: 04/28/18 12:22 Dose: 150 mls/hr Ampicillin Sodium/Sulbactam (Sodium 3 gm/ Sodium Chloride) 100 mls @ 200 mls/ hr IV ONETIME ONE Stop: 04/28/18 12:41 Last Admin: 04/28/18 12:37 Dose: 200 mls/hr Iopamidol (Isovue-300 (61%)) 80 ml IVPUSH ONETIME ONE Stop: 04/28/18 12:17 Last Admin: 04/28/18 12:31 Dose: 80 ml Ondansetron HCl (Zofran) 4 mg IV Q4H PRN PRN Reason: Nausea/Vomiting Sodium Chloride (Saline Flush) 10 ml FLUSH ONETIME ONE Stop: 04/28/18 12:17 Last Admin: 04/28/18 12:31 Dose: 10 ml - Exam General: Reports: Alert, Oriented, Cooperative, No Acute Distress HEENT: Reports: Pupils Equal, Pupils Reactive, EOMI Neck: Reports: Trachea Midline, No JVD Lungs: Reports: Normal Respiratory Effort Cardiovascular: Reports: Regular Rate, Regular Rhythm GI/Abdominal Exam: Normal Bowel Sounds, Soft, Non-Tender, No Organomegaly, No Distention (Male) Exam: Deferred Rectal (Males) Exam: Deferred Back Exam: Reports: Normal Inspection Extremities: Normal Inspection, Non-Tender, Normal Capillary Refill Skin: Reports: Warm Neurological: Reports: No New Focal Deficit Psy/Mental Status: Reports: Alert, Normal Affect, Normal Mood
[2018-05-01] MEDS ORDERED: Ampicillin/Sulbactam Na 3 GM in Sodium Chloride 0.9% 100 ML IV ONE (10:30)
[2018-05-01] MEDS ORDERED: Amoxicillin/Clavulanate K 875-125 MG Tab PO SCH (21:00)
[2018-05-03] MEDS ORDERED: Ibuprofen 400 MG Tab PO PRN (23:00)
== END 2018-05-01 11:27 | disposition home or self-care (01) | DRG 113 ==
LOC: JD.ED 11:36 → JD.MS 14:49
PROVIDERS: ADMIT Internal Medicine Cardiovascular Disease; ATTEND Internal Medicine Cardiovascular Disease
DX: J36 Peritonsillar abscess (principal); E86.0 Dehydration; Q15.9 Congenital malformation of eye, unspecified; H54.7 Unspecified visual loss; H91.93 Unspecified hearing loss, bilateral; E04.1 Nontoxic single thyroid nodule; F17.210 Nicotine dependence, cigarettes, uncomplicated
CPT/HCPCS: 36415; 70491; 70491-26; 80053; 80306; 83735; 85007; 85025; 85027; 86140; 87040; 87081; 87430; 96361; 96365; 96375; 96376; 99284; 99284-25; A9270-GY; J0295; J1170; J1885; J7030; J7040; Q9967

== ENCOUNTER 2022-11-14 14:48 | Emergency (ER) | payer BC, OTHER ==
[2022-11-14] MEDS ORDERED: Famotidine 20 MG Tab PO ONE (15:14)
[2022-11-14] MEDS ORDERED: Cetirizine 10 MG Tab PO ONE (15:14)
[2022-11-14] MEDS ORDERED: predniSONE 20 MG Tab ONE (15:23)
[2022-11-14] MEDS ORDERED: predniSONE 10 MG Tab PO ONE (15:24)
[2022-11-14] MEDS ORDERED: EPINEPHrine 1 MG/ML SDV IM ONE (16:26)
[2022-11-15] MEDS ORDERED: predniSONE 20 MG Tab PO ONE (15:15)
== END 2022-11-14 17:51 | disposition home or self-care (01) ==
LOC: JD.ED 14:48
DX: T63.441A Toxic effect of venom of bees, accidental (unintentional), initial encounter (principal)
CPT/HCPCS: 96372; 99282; A9270; J0171; J7512; 99283

== ENCOUNTER 2022-12-30 20:19 | Emergency (ER) | payer BC | END 2022-12-30 21:34 | disposition home or self-care (01) | LOC: JD.ED 20:19 | DX: S93.401A Sprain of unspecified ligament of right ankle, initial encounter (principal); X50.9XXA Other and unspecified overexertion or strenuous movements or postures, initial encounter | CPT/HCPCS: 73610-26-RT; 73610-RT; 99282; 99283 ==

== ENCOUNTER 2024-01-24 13:23 | Emergency (ER) | payer BC ==
[2024-01-24] MEDS: Diphtheria,Pertussis(Acell),Tetanus Vaccine 0.5 ML Syringe IM ONE (14:27)
[2024-01-24] MEDS: Lidocaine 1% 10 ML MDV INJECT ONE (14:27)
== END 2024-01-24 16:00 | disposition home or self-care (01) ==
LOC: JD.ED 13:23
DX: S06.0X0A Concussion without loss of consciousness, initial encounter (principal); S01.81XA Laceration without foreign body of other part of head, initial encounter; Z23 Encounter for immunization; X58.XXXA Exposure to other specified factors, initial encounter
CPT/HCPCS: 12013; 70450; 70450-26; 90471; 90715; 99283-25; J3490